=== PATIENT | female | born 2000 | race Caucasian/White ===

== ENCOUNTER 2020-07-12 16:37 | Emergency (ER) | payer OTHER ==
[~2020-07-12] VITALS: Ht 180.3 cm; Wt 117.9 kg
--- OUTSIDE RECORDS SUMMARY | 2020-07-12 16:44 | XMS ---
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 E.Tia VISIT COUNT (12 MO.) 1 [facility] TOTAL 8 NOTE: Visits indicate total known visits. ED/UCC VISIT TRACKING (12 MO.) 07/12/2020 16:38 [facility] TYPE: Emergency COMPLAINT: - RT FOOT PAIN 05/28/2020 19:09 [facility] BERENICE Tavarez TYPE: Emergency DIAGNOSES: - Strain of unspecified muscle and tendon at ankle and foot level, right foot, initial encounter - Foot Injury - Ankle Injury 04/25/2020 09:53 [facility]mber [facility] TYPE: Emergency DIAGNOSES: - Encounter for issue of repeat prescription - Medication Refill - Major depressive disorder, single episode, unspecified 04/13/2020 15:33 [facility] Ember [facility] M[facility] TYPE: Emergency DIAGNOSES: - Jaw Pain - Labs Only - Headache, unspecified 04/08/2020 16:29 [facility]mber [facility] TYPE: Emergency DIAGNOSES: - Other chronic pain - Pain in right ankle and joints of right foot - Ankle Pain 03/26/2020 09:08 [facility] Ember [facility]Y M[facility] TYPE: Emergency DIAGNOSES: - Encounter for issue of repeat prescription - Medication Refill 03/10/2020 22:03 [facility] Ember [facility] M[facility] TYPE: Emergency DIAGNOSES: - Acute gastritis without bleeding - Fall - Epigastric pain - Vaginal Bleed - Unknown Status 03/03/2020 15:18 [facility] Ember CASEY M[facility] TYPE: Emergency DIAGNOSES: - Contact with and (suspected) exposure to other viral communicable diseases - Labs Only INPATIENT VISIT TRACKING (12 MO.) 09/01/2019 23:50 [facility] CASEY TYPE: Mother Baby Unit DIAGNOSES: - Encounter for full-term uncomplicated delivery - Vaginal Bleeding [id number]
[2020-07-12] MEDS ORDERED: LEXAPRO20 MG PO (17:00)
[2020-07-12] MEDS ORDERED: DEPO-PROVE150 MG/11 IM (17:01)
[2020-07-12] MEDS ORDERED: IBU600 MG PO (17:11)
== END 2020-07-12 17:23 | disposition home or self-care (01) ==
LOC: ED 16:37
DX: S90.31XA Contusion of right foot, initial encounter (principal); W50.0XXA Accidental hit or strike by another person, initial encounter; Z88.8 Allergy status to other drugs, medicaments and biological substances; Z79.899 Other long term (current) drug therapy
CPT/HCPCS: 73630; 99283-25; A9270